=== PATIENT | male | born 2000 | race Two or more races ===

== ENCOUNTER 2022-12-08 18:31 | Emergency (ER) | payer OTHER ==
[~2022-12-08] VITALS: Ht 170.2 cm; Wt 81.2 kg
[2022-12-08] MEDS ORDERED: LORAZEPAM INJ 2 MG/ML VIAL ONE (19:10)
[2022-12-08] MEDS ORDERED: LORAZEPAM INJ 2 MG/ML VIAL IV ONE (19:30)
[2022-12-08] MEDS ORDERED: LEVE500T9 PO (20:41)
[2022-12-08 21:43] VITALS: BP 121/68; TEMP 98.2; O2SAT 98
== END 2022-12-08 21:44 | disposition home or self-care (01) ==
LOC: ER 18:31 → EDBD 18:31 → ER 21:44
DX: G40.909 Epilepsy, unspecified, not intractable, without status epilepticus (principal)
CPT/HCPCS: 99283; 96374; J2060